=== PATIENT | male | born 1940 | race Caucasian/White ===

== ENCOUNTER 2025-05-05 12:55 | Inpatient (IN) | payer OTHER, SELFPAY ==
[2025-05-05] VITALS (41 sets, daily range): BP systolic 81–159; BP diastolic 55–82; PULSE 2–121; BMI 34.5
--- NOTE | 2025-05-05 11:13 | ED.GENMED ---
History of Present Illness
General
Chief Complaint: Chest Pain
Source: patient
Exam Limitations: none
Time Seen by Provider: 05/05/25 11:13
History of Present Illness
History of Present Illness:
See MDM
Past History
Past History
ED Past Medical History: CAD and HTN
ED Past Surgical History: Cardiac
Social History
Tobacco: Non-smoker
Personal:
Living: with family
Phy Exam
Physical Exam
Physical Exam:
See MDM
Scores
Heart Score for Chest Pain Patients
STEMI patient?: Yes
Course
Orders/Labs/Results
Orders:
Orders
05/05/25 11:06
Electrocardiogram (*1) Urgent
Reason for Study: Chest Pain
EKG- Treatment ONCE
05/05/25 11:12
Complete Blood Count/With Diff Urgent
Comprehensive Metabolic Panel Urgent
Troponin I Urgent
05/05/25 11:16
PTT Urgent
Prothrombin Time Urgent
Ticagrelor [Brilinta] 180 mg .ROUTE .STK-MED ONE
05/05/25 11:17
Heparin 5,000 units .ROUTE .STK-MED ONE
Vital Signs
Initial and Last Documented VS:
Initial Vital Signs
Pulse Resp Pulse Ox
108 35 93
05/05/25 11:09 05/05/25 11:09 05/05/25 11:09
Last Documented Vital Signs
Pulse Resp BP Pulse Ox
108 35 151/68 93
05/05/25 11:09 05/05/25 11:09 05/05/25 11:10 05/05/25 11:14
MDM/Problems Addressed
Differential Diagnosis Includes:
Note:
CHIEF COMPLAINT(S)
Chest pain.
HISTORY OF PRESENT ILLNESS
The patient is an 84-year-old male with a history of coronary artery bypass surgery performed in 2017. He presents with chest pain that he describes as having started a couple of days ago with intermittent episodes of chest discomfort between the
shoulders. Initially, the pain would subside with rest, but currently, it persists despite resting. The chest pain is also associated with shortness of breath, which worsens when lying flat. Of note, the patient self-administered 324 mg of aspirin
(four baby aspirins) prior to calling emergency medical services (EMS). He was pre-hospital alerted for potential ST-segment elevation myocardial infarction (STEMI) before his arrival at the emergency department.
Interventional cardiology at bedside on arrival
PAST MEDICAL AND SURGICAL HISTORY
History of coronary artery bypass graft surgery in 2017.
PHYSICAL EXAM
General: Alert, no acute distress.
Skin: Warm, dry.
Head: Normocephalic, atraumatic
Neck: Appears supple, trachea midline.
Eyes, Ears, Nose, Mouth, and Throat: Moist mucous membranes
Cardiovascular: No signs of cyanosis. Regular rate and rhythm
Respiratory: Respirations are non-labored.
Abdomen: Non-distended
Musculoskeletal: No deformities
Neurological: No focal neurological deficit observed.
Psychiatric: mildly anxious
PLAN
The patient will be prepared for cardiac catheterization to evaluate for potential arterial blockage as the underlying cause of symptoms. An IV line will be established, and the patient will be observed before being taken for the procedure. Consent
for cardiac catheterization has been obtained, acknowledging the small risks involved, including bleeding, heart attack, stroke, or need for emergency surgery.
DIFFERENTIAL DIAGNOSIS
The Differential Diagnosis includes, in no particular order and is not limited to:
- Acute coronary syndrome
- Myocardial infarction
- Aortic dissection
- Pulmonary embolism
- Gastroesophageal reflux disease
- Pericarditis
- Costochondritis
- Musculoskeletal pain
- Anxiety-related chest pain
- Heart failure
SUMMARY OF ENCOUNTER
The patient, presenting with chest pain and shortness of breath, was managed in the emergency department with a focus on ruling out acute coronary syndrome. An black topper was consulted early, and cardiac catheterization was planned to
assess for coronary artery disease.
DISPOSITION
Transfer to the catheterization lab for further evaluation and management.
EMERGENCY TREATMENTS ADMINISTERED
The patient received a bolus of heparin and ticagrelor (Brilinta) due to already having taken aspirin.
MEDICAL DECISION MAKING
- Number and Complexity of Problems Addressed: Chronic conditions affecting care include a history of coronary artery disease and prior coronary artery bypass graft surgery.
Data:
Category 1
- External record reviewed: Prior external cardiology reports indicating a history of coronary artery bypass grafting.
- Category 2
- Assessment requiring an independent historian(s): Input from EMS on patient�s aspirin use and initial chest pain management.
Discussion of management with other physician, healthcare provider, other source: The admitting black topper discussed patient management, particularly with the potential need for coronary intervention.
- Risk: The patient is at significant risk for cardiovascular complications, warranting immediate invasive cardiology assessment and potential intervention.
DIAGNOSIS
- Unstable angina (I20.0)
- Suspected acute myocardial infarction (I21.9)
Disposition:
SUMMARY OF ENCOUNTER
The patient, an 84-year-old male, presented to the emergency department with intermittent chest pain and shortness of breath. EMS was called prior to arrival due to concern for a potential ST-segment elevation myocardial infarction (STEMI), and a
pre-hospital STEMI alert was issued. The patient had self-administered aspirin before arrival. Upon arrival, interventional cardiology evaluated the patient, and he was promptly given ticagrelor (Brilinta) and heparin before being sent to the
catheterization lab for emergent cardiac catheterization to evaluate his coronary arteries.
DISPOSITION
Transfer to the catheterization lab for further evaluation and management.
EMERGENCY TREATMENTS ADMINISTERED
The patient received ticagrelor (Brilinta) and heparin.
MANAGEMENT OF THE PATIENTS CARE WAS DISCUSSED WITH
Interventional cardiology evaluated and managed the patients care upon arrival.
PLAN
The patient will undergo cardiac catheterization in the optical laboratory mechanic to assess for coronary artery disease and evaluate the cause of the symptoms.
MEDICATION RECONCILIATION
- Ticagrelor (Brilinta) administered.
- Heparin administered.
- Self-administered aspirin prior to arrival.
MEDICAL DECISION MAKING
- Number and Complexity of Problems Addressed: Chronic conditions affecting care include a history of coronary artery disease and prior coronary artery bypass graft surgery, with differential diagnoses including acute coronary syndrome and
myocardial infarction.
- Data:
Category 1
- External record reviewed: Interventional cardiology evaluated the patient on arrival.
Category 3
- Discussion of management with interventional cardiology regarding coronary intervention consideration.
DIAGNOSIS
- Unstable angina (I20.0)
- Suspected acute myocardial infarction (I21.9)
*Pulse Oximetry
SaO2: 93
Oxygen Mode of Delivery: Room air
Patient hypoxic: no
*Critical Care Note
Total Time (30-74mins, 75-104mins- exclusive of procedures): 25 min
comment:
The high probability of a clinically significant, sudden or life threatening deterioration of the cardiovascular system(s) required my full and direct attention, intervention and personal management. The aggregate critical care time was 25 minutes.
This time is in addition to time spent performing reported procedures but includes the following:
[x] Data Review and interpretation
[x] Patient assessment and monitoring of vital signs
[x] Documentation
[x] Medication orders and management
ED Attending Note
-
Portions of this chart may have been created with voice recognition software.� Occasional wrong word or��sound alike� substitutions may have occurred due to the inherent limitations of voice recognition software.
Discharge Plan
Departure
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
Date of Disposition: 05/05/25
Time of Disposition: 11:14
Admit to: photo lab manager
Presentation/result/management discussed w/ accepting MD/DO: strategic planner
Discharge Problem:
STEMI (ST elevation myocardial infarction)
Prescriptions:
No Action
aspirin [Adult Low Dose Aspirin] 81 MG tablet,delayed release (DR/EC)
81 mg DAILY
terazosin [Hytrin] 2 MG capsule
2 mg DAILY
captopril-hydrochlorothiazide 1 TAB tablet
1 tab PO BID
furosemide 40 MG tablet
40 mg PO DAILY Qty: 14 0RF
Rx Instructions:
take for 14 days then stop
atorvastatin 80 MG tablet
80 mg PO HS Qty: 90 0RF
metoprolol succinate 50 MG tablet extended release 24 hr
50 mg PO DAILY Qty: 90 0RF
potassium chloride [Klor-Con M20] 20 MEQ tablet,ER particles/crystals
20 meq PO DAILY Qty: 14 0RF
Rx Instructions:
take for 14 days then stop
pantoprazole 40 MG tablet,delayed release (DR/EC)
40 mg PO DAILY Qty: 30 0RF
Rx Instructions:
take for 30 days then stop
oxycodone 5 MG tablet
5 mg PO Q4HPRN PRN (Reason: MODERATE PAIN) Qty: 40 0RF
Rx Instructions:
ongoing therapy for postoperative pain
Interventions
Interventions:
*Risk Screen - Suicide Last Done: 05/05/25 11:07
*General Assessment Last Done: 05/05/25 11:07
*Neglect/Abuse Screening Last Done: 05/05/25 11:07
*ED COVID-19 Vaccine History Last Done: 05/05/25 11:07
*ED Influenza Vaccine History Last Done: 05/05/25 11:07
Discharge Date and Time
Print Language: MALAY
[2025-05-05 11:27] LABS: Hematocrit 46.6 % (39.0-52.0); Hemoglobin 16.1 g/dL (13.0-18.0); Mean Corp Hgb Conc. 34.5 g/dL (33.0-37.0); Mean Corpuscular Volume 92.5 fL (80.0-94.0); Nucleated Red Blood Cells % 0 % (-); Platelet Count 126 10^3/uL (130-400); Red Cell Dist. Width 14.2 % (11.5-14.5)
[2025-05-05 11:45] LABS: ACT-LR - POC 195 Seconds (116-155)
[2025-05-05 12:08] LABS: Hematocrit 43.8 % (39.0-52.0); Hemoglobin 15.0 g/dL (13.0-18.0); Mean Corp Hgb Conc. 34.2 g/dL (33.0-37.0); Mean Corpuscular Volume 93.0 fL (80.0-94.0); Nucleated Red Blood Cells % 0 % (-); Platelet Count 115 10^3/uL (130-400); Red Cell Dist. Width 14.2 % (11.5-14.5)
--- NOTE | 2025-05-05 12:18 | CON.CAR ---
Consultation
Consultation Request
Reason for Consultation: CAD/Chest pain
Medical History
-
Chief Complaint: CAD/Chest pain
History of Present Illness:
84 yo WM h/o Severe /CAD post CABGx2 (SALAMANCA-LAD, SVG-OM2) and bioprosthetic AVR 2017, HTN, HLD, COPD, BPH, former tobacco who presents with intermittent shoulder blade pain stating a few days ago with severe dyspnea and orthopnea which usually
subsides with rest, but his symptoms were not resolving and he called 911. Prehospital EKG with Anterior and inferior HEATHER and STEMI alert activated. He took 324mg ASA at home. He was brought urgently to the laborer rags after heparin, Brilinta given in
ER.
Past Medical History
Past Medical History: CAD, COPD, HTN, Hypercholesterolemia, Valvular Disease (Severe in bioprostetic valve), Psychiatric (Anxiety) and Other (BPH, preDM)
Past Surgical History: Cardiac (AVR, CABGx2 (SALAMANCA-LAD, SVG-OM2) 2017), Orthopedic (TKR) and Other (inguinal hernia repair)
Social History
Tobacco: Former Smoker
Alcohol: Occasional
Family History
Family History: Cancer
Allergies / Home Medications
Allergy/AdvReac Type Severity Reaction Status Date / Time
No Known Allergies Allergy Verified 01/31/17 02:40
�Medication �Instructions �Recorded �Confirmed �Type
aspirin 81 mg tablet,delayed 81 mg DAILY 01/31/17 01/31/17 History
release (Adult Low Dose Aspirin)
captopril 50 1 tab PO BID 01/31/17 01/31/17 History
mg-hydrochlorothiazide 25 mg tablet
terazosin 2 mg capsule (Hytrin) 2 mg DAILY 01/31/17 01/31/17 History
atorvastatin 80 mg tablet 80 mg PO HS #90 tabs 02/04/17 Rx
furosemide 40 mg tablet 40 mg PO DAILY #14 tabs 02/04/17 Rx
metoprolol succinate 50 mg 50 mg PO DAILY #90 tabs 02/04/17 Rx
tablet,extended release 24 hr
oxycodone 5 mg tablet 5 mg PO Q4HPRN PRN MODERATE PAIN 02/04/17 Rx
#40 tabs
pantoprazole 40 mg tablet,delayed 40 mg PO DAILY #30 tabs 02/04/17 Rx
release
potassium chloride 20 mEq 20 meq PO DAILY #14 tabs 02/04/17 Rx
tablet,extended
release(part/cryst) (Klor-Con M)
Review of Systems
-
Respiratory: Trouble Breathing
Cardiac: Chest Pain
Physical Exam
Vital Signs
Pulse Resp BP Pulse Ox
108 35 151/68 93
05/05/25 11:09 05/05/25 11:09 05/05/25 11:10 05/05/25 11:14
Lab Results
05/05/25 11:42
Troponin I Cancelled 05/05/25 11:12
Physical Exam
General: Respiratory Distress and Pain (full exam deferred as being prepped and draped for urgent cath)
Impression / Plan
-
Primary care physician: DENICE Prakash
Primary concrete products dispatcher: Troy Katz MD
Impression/Plan:
#Acute ischemic Myocardial injury - prior CABGx2/AVR 2016, severe stenosis of bioprosthetic AV and acute HF causing chest pain, dyspnea and diaphoresis. Cath with open grafts and no acute lesion for PCI
Severely elevated LVEDP 40, Lasix 40mg IV given in lab, will continue with aggressive diuresis, Lasix 40 IV bid, closely monitor I&O's, replete electrolytes as needed.
Check Echo today, 08/2024 ECHO - EF 60-65%, Severe p/m 54/39mmHg, JOANIE 1.0cm2, severe MAC
serial troponin to peak, continue ASA, Statin, BB
Will start heparin drip in 6 hours
#Acute hypoxic respiratory failure - currently on bipap to keep sats >92%, critically ill may require intubation if worsens
defer to circular sawyer stone for management
#Severe - prior Bioprosthetic AVR 2016, check Echo today to assess valve gradients, will have TAVR team discussion when more stable
#COPD/former tobacco - check cxr, resume home inhalers/nebs as needed
#HTN - continue nitro drip, resume PO meds when able
#Hyperlipidemia - check CVE, continue statin
#BPH
#Anxiety
Patient guarded, critically ill in ICU
Data Reviewed
-
EKG: Discussed with Physician
[2025-05-05 12:29] LABS: ALT (SGPT) 24 U/L (0-50); AST (SGOT) 77 U/L (17-59); Albumin 4.0 g/dl (3.5-5.0); Alkaline Phosphatase 81 U/L (38-126); Blood Urea Nitrogen 21 mg/dl (9-20); Calcium 9.7 mg/dl (8.4-10.2); Carbon Dioxide 22 mmol/L (22-30); Chloride 104 mmol/L (98-107); Estimated Creatinine Clearance 66 ml/min; Glucose 150 mg/dl (70-99); Potassium 3.8 mmol/L (3.5-5.1); Sodium 133 mmol/L (135-145); Total Protein 7.0 g/dl (6.3-8.2); eGFR > 60.00
--- NOTE | 2025-05-05 12:42 | HPS.HSE ---
Family Physician
-
Family Physician: INTERVIEWE UNKNOWN - PT NOT
Chief Complaint
-
Chest pain, shortness of breath
History of Present Illness
84-year-old male who started with chest pain intermittent a couple days ago between both shoulder blades. He reports pain would subside with rest but currently is persistent and associated with shortness of breath. He complains of constant
orthopnea. He took aspirin 324 mg before calling EMS. He arrived as a STEMI with interventional cardiology at bedside. Patiently is currently in ICU resting comfortably with BiPAP in place. He denies current chest pain, headache, palpitations,
fever, chills, cough, abdominal pain, nausea, vomiting, diarrhea. He was able to void in urinal at bedside. The patient lives by his self his son is his emergency contact however is [place] of the [place] however his brother Jake is here with him.
He has past medical history of CAD/CABG 2017, HTN, COPD, ex-smoker 30 to 40 years quit 10 years ago, AVR with severe , HLD, GERD, arthritis.
Medical History
Past Medical History
Past Medical History: Reports Other
Additional Past Medical History:
CAD/CABG 2017
HTN,
ex-smoker
COPD
AVR with severe
HLD
GERD
arthritis
Class II obesity
Past Surgical History: Reports Other
Additional Past Surgical History:
Anal fissure repair in 2009, right knee replacement
Social History
Tobacco: Former Smoker (30 to 40 years 1 pack a day quit approximately 10 years ago)
Alcohol: Occasional (1-2 beers a week occasional bourbon)
Drug: None
Personal: Single
Living: Alone
Employment: Retired
Family History
Family History: Not pertinent
Allergies / Home Medications
Allergies reflects when Allergies were last updated in [employer].
Home Medications with original date entered in [employer]
Allergy/Medication List:
Allergies
Allergy/AdvReac Type Severity Reaction Status Date / Time
No Known Allergies Allergy Verified 01/31/17 02:40
Home Medications
aspirin 81 mg tablet,delayed release (Adult Low Dose Aspirin) 81 mg DAILY 01/31/17
atorvastatin 80 mg tablet 80 mg PO HS #90 tabs 02/04/17
enalapril maleate 5 mg tablet 5 mg PO BID Blood Pressure 05/05/25
fluticasone fur. 100 mcg-umeclid 62.5 mcg-vilant 25 mcg inhalat.powder (Trelegy Ellipta) 1 inh inhalation DAILY Lung/Breathing Issues 05/05/25
hydrochlorothiazide 25 mg tablet 25 mg PO DAILY Fluid Retention/Swelling 05/05/25
metoprolol succinate 100 mg tablet,extended release 24 hr 100 mg PO DAILY Blood Pressure 05/05/25
terazosin 2 mg capsule 2 mg PO DAILY Blood Pressure 05/05/25
Review of Systems
-
History Source: Patient
Constitutional: Denies Fever, Fatigue or Chills
EENT: Denies Sore Throat or Runny Nose
Respiratory: Reports Trouble Breathing and Other (Orthopnea)
Cardiac: Reports Chest Pain; Denies Diaphoresis, Palpitations or Syncope
Abdomen/GI: Denies Abdominal Pain, Nausea, Vomiting, Diarrhea, Constipated, Bloody Stools or Black Stools
: Denies Dysuria, Frequency, Flank Pain, Incontinence or Difficulty Voiding
Musculoskeletal: Reports Edema (Nonpitting +1 bilateral lower leg); Denies Joint Pain
Skin: Denies Itching or Rash
Neurological: Denies Dizzy, Headache or Weakness
Endocrine: Reports No Symptoms
Hematologic/Lymphatic: Reports No Symptoms
Psych: Reports Calm
Physical Exam
Vital Signs
Vital Signs
Pulse Resp BP Pulse Ox
108 35 151/68 93
05/05/25 11:09 05/05/25 11:09 05/05/25 11:10 05/05/25 11:14
Physical Exam
General: Comfortable and Conversant
HEENT: NormoCephalic, Anicteric, PERRLA, Maish Vaya Conjunctivae, No Ptosis and Oxygen (Current BiPAP in place satting 91-94% 15/5 on 12 L nasal cannula)
Respiratory: Rhonchi (Throughout both upper lung modi)
Cardiac: S1/S2, Regular Rhythm, Murmur (3/6 systolic) and Peripheral Edema (+1 nonpitting bilateral lower leg); No Rub or Gallop
GI: Soft, Non Tender, Non Distended, Normal Bowel Sounds and No Hepatosplenomegaly
Genito-urinary: Deferred by me
Musculoskeletal: No Clubbing, No Cyanosis, Edema, Left Lower Extremity (+1) and Edema, Right Lower Extremity (+1 nonpitting); No Edema, Left Upper Extremity or Edema, Right Upper Extremity
Skin: Warm and Dry; No Rash
Neuro: AO x 3, No Motor Deficits, Nonfocal/grossly intact, Cranial Nerves Intact and No Sensory Deficits; No Slurred Speech, Facial Droop, Tremors or Sedated
Psych: Calm
Laboratory Results
-
05/05/25 11:42
05/05/25 11:42
Laboratory Results
PT Cancelled 05/05/25 11:16
INR Cancelled 05/05/25 11:16
APTT Cancelled 05/05/25 11:16
Total Bilirubin 2.2 mg/dl (0.2-1.3) H 05/05/25 11:42
AST 77 U/L (17-59) H 05/05/25 11:42
ALT 24 U/L (0-50) 05/05/25 11:42
Alkaline Phosphatase 81 U/L (38-126) 05/05/25 11:42
Troponin I Cancelled 05/05/25 11:12
Data Reviewed
-
Diagnostic Radiology: Report Reviewed by me
Lab Data: Labs Reviewed by me
Impression/Plan
-
Impression/plan:
Admit to ICU
#Suspected STEMI prehospital
#CAD/CABG 2016
Prehospital aspirin 325 mg given by patient at home
-Brilinta given in ER
-IV heparin to start 6 pm To be clarified with Dr dalton
- Patient to cardiac cath
-Consult human resources hr representative�Dr. Dietrich at bedside
-Consult cardiology interventionalist
- Continue aspirin 81 mg daily, Lipitor 80 mg at bedtime, Toprol XL 50 mg daily
- Check lipid profile, HgbA1c, follow troponin CBC
-Check stat CXR
Follow CBC, CMP
Post cath No stent grafts or open, EDP 40, severe AAS with acute heart failure no culprit lesion more ischemia in setting of severe and heart failure
#Acute Hypoxic resp failure 2/2 NEW Acute heart failure requiring Bipap
# AVR with severe
Patient requiring BiPAP 15/5 with 12 L O2 satting 91-94%
-IV Lasix 40 mg twice daily
-IV nitro drip
-Check 2D echo
-Consult CArdioogy
#HTN
151/68
-Continue beta-naren metoprolol 100 mg BId
Continue enalapril 5 mg twice daily with hold parameters
COPD no acute exacerbation
Ex-smoker 30 to 40 years quit 10 years ago
#GERD
Continue Protonix 40 mg daily
#BPH
Continue terazosin 2 mg daily
#Class II obesity�BMI 34
Weight loss recommended
DVT prophylaxis
Iv heparin gtt
Full code
--- NOTE | 2025-05-05 12:48 | ITS.CL.PN ---
[facility] - Procedure Note
Procedure
Procedure Note:
CARDIAC CATHETERIZATION REPORT
Date of Procedure: 05/05/2025
Referring: Davian Bo MD
Indication: STEMI
PROCEDURE(S)
1. left heart catheterization
2. coronary angiography
ACCESS: 6F right common femoral artery (closure: Angiosealx1)
CATHETERS
1. 6F JR4
2. 6F JL4
3. 6F IVAN
4. 6F AL1
5. 6F [place] pigtail
MODERATE SEDATION: 45 minutes of moderate sedation was utilized. An independent medical lab technologist was present to assist with and help manage the patient's level of consciousness and physiologic status.
HEMODYNAMIC DATA
LV 178/28 (EDP 47) mmHg
AO 149/79 (mean 108) mmHg
Mean valve gradient (via [place] dual lumen catheter): 28 mmHg (note: RHC not performed as patient was in acute hypoxic respiratory failure and priority was placed on getting the patient off the cath table)
CORONARY ANGIOGRAPHY
Dominance: right
LM: large with mild disease
LAD: large vessel giving rise to a moderate caliber D1 and moderate caliber D2. There is a high grade heavily calcified lesion in the proximal LAD before the D1 takeoff and then a ROPEWALK ROPE MAKER in the mid-LAD just after the large S1. The S1 supplies septal
collaterals to the RCA and has a focal severe stenosis in its proximal aspect. The mid-distal vessel is fed via the patent SALAMANCA. While the SALAMANCA and its touchdown on the LAD are without disease, the remainder of the LAD is highly atretic with diffuse
severe disease in both the antegrade and retrograde limb but no obvious culprit lesion.
LCx: Large vessel giving rise to a totally occluded OM1 fed via the SVG and a large caliber continuation vessel that feeds several LPL branches. There is a focal 80% stenosis at the takeoff of OM1 and otherwise mild diffuse disease.
RCA: Chronically occluded proximally with the vessel filled via L-R collaterals from the LAD septals.
BYPASS GRAFT ANGIOGRAPHY:
SALAMANCA-LAD: the SALAMANCA is taken as a pedicle and forms an anastomosis with the mid-LAD. The SALAMANCA is a highly tortuous vessel without any disease in the body and no disease at the touchdown.
SVG-OM1: without disease, form a patent anastomosis with the OM1
RADIATION: dose 626 mGy; DAP 52 Gy*cm2; fluoroscopy time 11.0 min
CONCLUSIONS
1. Severely elevated LV filling pressure and at least moderate bioprosthetic aortic valve stenosis (mean gradient 28 mmHg, but patient likely in low output state give severe heart failure). RHC not performed for full valve study given the patient's
poor clinical status due to severe pulmonary edema from heart failure.
2. Severe coronary artery disease s/p CABGx2 as described without clear infarct lesion to explain presentation. I believe his presentation is most consistent with progressive heart failure and severe with underlying severe coronary artery disease.
RECOMMENDATIONS
1. Diuresis and treatment of acute heart failure and pulmonary edema with IV lasix and nitro titrated to goal SBP<160 (note: care taken with nitro given severe aortic stenosis)
2. TTE once out of acute heart failure to evaluate valve gradients with consideration of inpatient vs. outpatient workup for Josue TAVR pending course. Of note, TTE performed today measured a mean aortic valve gradient of 2 mmHg, likely due to the CW
doppler not being appropriately positioned across the valve.
3. Restart heparin tonight for 48 hours
4. Cont. home ASA, atorvastatin, metoprolol
Copy to: Dr. Troy Katz MD (senior formulation scientist); DENICE Prakash (PCP)
Signed: Luis Witt MD, PhD
--- NOTE | 2025-05-05 12:49 | CON.INTV ---
Consultation
Consultation Request
Date/Time Consultation Requested: 05/05/2025
Date/Time Consultation Performed: 05/05/2025
Medical History
-
Chief Complaint: Chest pain
History of Present Illness:
Patient is a 84-year-old gentleman with known history of coronary artery bypass graft as well as aortic stenosis status postsurgical valve replacement in 2017 who presented to the emergency room with chest discomfort intermittently going on for few
days and mostly between the shoulder blades. Pain improves with rest and associated with dyspnea. Patient received a dose of aspirin and was brought to the emergency room with a STEMI alert. Patient was taken to Associate Programmer Analyst and had a coronary
angiogram performed. In the Associate Programmer Analyst, no culprit lesions were noted, patent grafts, however elevated LV diastolic pressure to 40 along with severe aortic stenosis as well as decompensated heart failure felt to be the etiology of symptoms. Patient
was placed on BiPAP due to respiratory distress and was admitted to ICU. Junior Software Developer consultation was requested for further input.
Patient has been noticing pedal edema over the last few days. Also reported paroxysmal nocturnal dyspnea as well as orthopnea. Reports feeling better while on BiPAP.
Past Medical History
Past Medical History: Reports Other
Additional Past Medical History:
CAD/CABG 2016
HTN,
ex-smoker,
AVR with severe
HLD
GERD
arthritis
Past Surgical History: Reports Other
Additional Past Surgical History:
. Anal fissure repair in 2009, right knee replacement
Allergies / Home Medications
Allergies / Home Medications
Allergies
Allergy/AdvReac Type Severity Reaction Status Date / Time
No Known Allergies Allergy Verified 01/31/17 02:40
Home Medications
�Medication �Instructions �Recorded �Confirmed �Last Taken �Type
aspirin 81 mg tablet,delayed 81 mg DAILY 01/31/17 01/31/17 01/30/17 06:00 History
release (Adult Low Dose Aspirin)
atorvastatin 80 mg tablet 80 mg PO HS #90 tabs 02/04/17 05/05/25 Unknown Rx
enalapril maleate 5 mg tablet 5 mg PO BID Blood Pressure 05/05/25 05/05/25 Unknown History
fluticasone fur. 100 mcg-umeclid 1 inh inhalation DAILY 05/05/25 05/05/25 Unknown History
62.5 mcg-vilant 25 mcg Lung/Breathing Issues
inhalat.powder (Trelegy Ellipta)
hydrochlorothiazide 25 mg tablet 25 mg PO DAILY Fluid 05/05/25 05/05/25 Unknown History
Retention/Swelling
metoprolol succinate 100 mg 100 mg PO DAILY Blood Pressure 05/05/25 05/05/25 Unknown History
tablet,extended release 24 hr
terazosin 2 mg capsule 2 mg PO DAILY Blood Pressure 05/05/25 05/05/25 Unknown History
Review of Systems
-
Hematologic/Lymphatic: Other (All 14 systems reviewed and negative except as stated above in the history of present illness.)
Vitals / Labs / Diagnostic Testing
Vital Signs
Pulse Resp BP Pulse Ox
108 35 151/68 93
05/05/25 11:09 05/05/25 11:09 05/05/25 11:10 05/05/25 11:14
Lab Data
05/05/25 11:42
05/05/25 11:42
Laboratory Results
05/05/25
11:16
PT Cancelled
INR Cancelled
APTT Cancelled
Diagnostic Testing:
Physical Exam
-
HEENT: Normocephalic
Cardiovascular: S1/S2 and Peripheral Edema
Respiratory: Rales
GI: Soft and Non Distended
Neurology: Awake and Alert
Skin: Warm
General: Comfortable
Assessment
-
#1. Acute hypoxic respiratory failure
- Suspect related to decompensated heart failure in the setting of severe aortic stenosis
- Continue O2 support, target saturation above 90%, continue BiPAP support. Currently on 28/10, pulling 400's tidal volume
- IV diuresis, give additional 40 mg IV stat
- Await follow-up echocardiogram, cardiology service on case
#2. Pulmonary edema with acute on suspect chronic congestive heart failure
- EF is unknown, await echocardiogram
- Suspect critical aortic stenosis is the driving factor behind decompensated heart failure
- BIPAP support, IV Lasix.
#3. Concern for ST elevation IL
- ST elevation in lateral leads as well as elevated troponin noted. Patient on aspirin, heparin drip, was emergently taken to Associate Programmer Analyst. Angiogram without major vessel blockage, ?small vessel disease
- Management per cardiology service, continue ASA/heparin infusion.
#4. H/o CAD, s/p CABG (01/2017)
- Continue ASA, Metoprolol, Heparin infusion
#5. 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
- Appears to be recurrence of severe aortic stenosis
- Monitor closely with ongoing diuresis, await further recommendations from cardiology service
#6. H/o COPD
- Patient quit smoking about 8 years ago
- Uses Trelegy at home, will switch to DuoNeb scheduled 4 times daily along with budesonide twice daily
- No wheezing on exam, current presentation not suggestive of COPD exacerbation
Other medical diagnoses:
- HTN
- HLD
- BPH
Critical Care time 65 mins -- The patient is admitted for acute critical illness for the treatment of vital organ failure and/or prevention of further life-threatening conditions. Total care includes time spent in review of history, physical exam,
medications, hemodynamic/ventilator parameters, laboratory data, imaging and discussion with house staff, pharmacy, respiratory therapy, heel buffer, and nursing.
Data:
EKG 04/2025: ST elevation in lateral leads.
ECHO 08/2024: 1. Normal chamber sizes.
2. Moderate to severe aortic stenosis
3. Normal left and right ventricular systolic function.
4. Grade 1 diastolic dysfunction
5. Normal right ventricular systolic pressure.
PFT 03/2023: FEV1 75% of predicted, FVC 63% of predicted, FEV1/FVC of 83. Total lung capacity reduced at 54% of predicted. Diffusion capacity reduced at 13.79, 59% of predicted. Spirometry without evidence of obstruction. Moderate restriction
suggested by reduced FVC as well as reduced total lung capacity along with reduced diffusion capacity.
[2025-05-05 12:51] LABS: Troponin I 4.000 ng/ml
--- NOTE | 2025-05-05 13:00 | PTCARENOTE ---
Pt was rec'd from coreroom foundry laborer into ICU 3367, bipap in place, nitro gtt running for MAP 70-100, orders reviewed, pt assessed, plan discussed with Dr. Dietrich. Stat CXR ordered and done, Echo ordered, 40 IV Lasix ordered and given. Pt unable to void via
urinal despite feeling urge, male purewick applied. See worklist.
[2025-05-05 13:20] LABS: Glucose - Point of Care 182 mg/dl (70-99)
--- NOTE | 2025-05-05 13:35 | W.PN.UPDATE ---
Addendum entered and electronically signed by Marli Vazquez MD 05/05/25 14:18:
patient bladder scanned for 800cc --> place aponte catheter
Original Note:
Update Note
Progress Note Update
This is an addendum to H&P written by CHECKER IN Kassy Salguero
I saw and examined the patient.
The CHECKER IN's note was reviewed and I agree with the note.
Comment:
Mr. Stefan Guthrie is a 84 yo man with hx severe s/p bioprosthetic AVR 2016 with elevated gradiants on echo 09/07 (54/39), CAD s/p CABG x 2, essential HTN, HLD, COPD, former tobacco use presents to the ER with pain between his shoulder blades
over past couple of days and worsening shortness of breath. Upon arrival to the ER VS significant for pulse 103, BP 151/68. Labs with WBC 10, Hg 15, PLT 115, Na 133, K+ 3.8, Cr 1.0, Glucose 150, T. Bili 2.2, Troponin 4. EKG with STEMI and he was
taken urgently to cardiac cath.
Cardiac cath without culprit lesion, open grafts. Elevated LVEDP at 40. He is requiring BiPAP for acute respiratory failure secondary to acute heart failure exacerbation in setting of .
Hypoxic Respiratory Failure seondary to heart failure
Acute heart failure preserved EF Exacerbation
Known moderate to severe Aortic Stenosis; Hx severe s/p bioprosthetic AVR 2016
Coronary Artery Disease s/p CABG x 2
-patient is admitted to ICU
-IV Lasix 40mg BID
-O2 support with BiPAP - wean as able with diuresis
-daily aspirin
-SCHEDULING ASSISTANT Lipitor
-SCHEDULING ASSISTANT Metoprolol XL 100mg
-IV Nitro gtt
-IV heparin gtt to start at 6PM per Cardiology
-trend Troponins
-Overhead Door Technician consult
-Cardiology consult
-daily weights, strict I/O
-*bladder scan to ensure not retaining
Essential HTN
-SCHEDULING ASSISTANT Metoprolol, Enalapril
-hold SCHEDULING ASSISTANT HCTZ
-SCHEDULING ASSISTANT Terazosin
HLD - SCHEDULING ASSISTANT Statin
COPD
DVT PPx Heparin gtt
FULL CODE
Total Critical Care TimE 60 minutes. I was immediately available to the patient and staff. I personally examined, reviewed labs, diagnostic images/reports, interpretations, treatment plans, discussed patient care with other providers and family
or caregivers (if patient is unable to make decisions), entered orders as appropriate and documented the medical record.
[2025-05-05] MEDS: LASIX 40 MG IV ×2 (13:52→16:06)
--- NOTE | 2025-05-05 14:05 | CARDSERVLU ---
Echocardiogram with Lumason completed after protocol screening completed. Allergies verified.
Patent IV site: __L hand___
IV site flushed with 0.9% NaCl pre and post administration.
Diluted bolus method utilized to enhance visualization of ventricular neal.
Total volume given: __2.5__ mL
Patient tolerated all procedures well without complications.
--- NOTE | 2025-05-05 14:21 | PTCARENOTE ---
Pt nauseated during Echo, felt like he was going to vomit, Bipap mask removed and nasal cannula placed. Pt retching, very small amount of emesis. Pt voiding small amount of clear yellow urine into male purewick, feeling urge to pass more urine but
canonot empty completely... per Dr. Vazquez, pt bladder scanned, result 806 mls, orders for aponte cath rec'd. Pt now feeling less nauseated, Zofran held at this time.
--- NOTE | 2025-05-05 15:22 | PTCARENOTE ---
14 fr. aponte placed with immediate return of 1100 mls clear yellow urine. Pt reports relief from pressure in bladder. Pt's family arrived to see him and were updated at bedside by Dr. Witt. Pt vital signs improving, BP WNL on nitro gtt as
ordered, will taper per protocol as appropriate. Call light in reach, pt resting comfortably.
[2025-05-05] MEDS: DUONEB 3 ML INH ×2 (15:28→18:47)
[2025-05-05 15:32] LABS: Magnesium 1.9 mg/dl (1.6-2.3)
[2025-05-05] MEDS: DESENEX/MITRAZOL/ZEASORB 1 APPLIC TOPICAL (17:14)
[2025-05-05] MEDS: KCL 40 MEQ PO (18:13)
[2025-05-05] MEDS: HEPARIN 25000 UNITS/250 ML IV (18:18)
[2025-05-05 18:22] LABS: Troponin I 74.200 ng/ml
--- NOTE | 2025-05-05 18:32 | PTCARENOTE ---
Plan was clarified with Dr. Witt, pt very uncomfortable in the bed, legs cramping, anxious... per Dr. Witt ok to come off bedrest 6 hours post cath. Right groin assessed prior to getting oob, small amount of bloody drainage on
dresssing...marked and timed by RN. Pt assisted to chair. Pt reports feeling better in chair. Sat 97% on 5L, will cont to wean as tolerated. Labs drawn and sent as ordered, Heparin gtt initiate at 18:18 at 1000 units/hr as ordered.
[2025-05-05 18:38] LABS: INR 1.06; PT 14.3 Sec (11.4-14.6)
[2025-05-05 18:39] LABS: APTT 28.0 Sec (23.4-35.0)
[2025-05-05] MEDS: PULMICORT 0.5 MG INH (18:47)
--- NOTE | 2025-05-05 20:50 | PTCARENOTE ---
received pt from [facility], bedside heparin gtt handoff. Patient OOB to chair watching TV, offering no c/o pain or discomfort at this time. Patient assisted to [facility] where he had BM, however patient asked for senna to start tomorrow morning as he has
history of frequent constipation, new orders profiled from WOOLING MACHINE OPERATOR.
Patient assisted back to bed, Heparin gtt running with no issue at 10, no s/s of bleeding to angio site.
O2 97% on 5 lm. pt has c/o feeling SOB with rest, instructed to take slow deep breaths with nose not mouth.
no further needs, call light within reach.
[2025-05-05] MEDS: VALIUM INJECTION 5 MG IV (21:50)
[2025-05-05] MEDS: LIPITOR 80 MG PO (21:50)
--- NOTE | 2025-05-05 22:28 | PTCARENOTE ---
patient expressing fear and anxiety regarding his procedure and the upcoming procedures, PRN valium ordered by TICKET WORKER, given to patient = effective results, patient sleeping
[2025-05-06] VITALS (17 sets, daily range): BP systolic 108–154; BP diastolic 49–86; BMI 34.3
[2025-05-06 00:07] LABS: APTT 61.7 Sec (23.4-35.0)
[2025-05-06 01:08] LABS: Troponin I 98.800 ng/ml
[2025-05-06] MEDS: TYLENOL 650 MG PO (05:25)
--- NOTE | 2025-05-06 05:43 | PTCARENOTE ---
patient OOB for part of shift, states feeling sob and having a hard time breathing, upon assessment, patient had nasal canula out of his nose. after a few minutes back on patient states he feels more comfortable.
prn tylenol given for mild chest discomfort.
labs drawn and sent
[2025-05-06 06:03] LABS: Hematocrit 46.7 % (39.0-52.0); Hemoglobin 16.2 g/dL (13.0-18.0); Mean Corp Hgb Conc. 34.7 g/dL (33.0-37.0); Mean Corpuscular Volume 93.2 fL (80.0-94.0); Platelet Count 126 10^3/uL (130-400); Red Cell Dist. Width 14.3 % (11.5-14.5)
[2025-05-06 06:36] LABS: Troponin I 78.400 ng/ml
[2025-05-06 07:12] LABS: ALT (SGPT) 57 U/L (0-50); AST (SGOT) 472 U/L (17-59); Albumin 4.4 g/dl (3.5-5.0); Alkaline Phosphatase 71 U/L (38-126); Blood Urea Nitrogen 26 mg/dl (9-20); Calcium 9.6 mg/dl (8.4-10.2); Carbon Dioxide 28 mmol/L (22-30); Chloride 102 mmol/L (98-107); Estimated Creatinine Clearance 55 ml/min; Glucose 161 mg/dl (70-99); HDL Cholesterol 71 mg/dl; LDL Cholesterol, Calculated 58 mg/dl; Potassium 3.9 mmol/L (3.5-5.1); Sodium 138 mmol/L (135-145); Total Protein 7.2 g/dl (6.3-8.2); Very Low Density Lipoprotein 15 mg/dl (0-30); eGFR 59.63
[2025-05-06] MEDS: DUONEB 3 ML INH ×4 (07:54→18:04)
[2025-05-06] MEDS: PULMICORT 0.5 MG INH ×2 (07:54→18:04)
[2025-05-06 08:26] LABS: Glycohemoglobin (HgbA1c) 5.7 % (4.0-5.9)
[2025-05-06 08:31] LABS: APTT 73.5 Sec (23.4-35.0)
[2025-05-06] MEDS: ASPIR LOW (ENTERIC COATED) 81 MG PO (08:59)
[2025-05-06] MEDS: TOPROL XL 50 MG PO (08:59)
[2025-05-06] MEDS: LASIX 40 MG IV ×2 (08:59→17:24)
[2025-05-06] MEDS: DESENEX/MITRAZOL/ZEASORB 1 APPLIC TOPICAL (09:02)
[2025-05-06] MEDS: KCL 40 MEQ PO (10:35)
[2025-05-06] MEDS: SENOKOT PO (10:36)
[2025-05-06 10:41] LABS: Magnesium 1.8 mg/dl (1.6-2.3)
--- NOTE | 2025-05-06 10:49 | W.PN.CD ---
Today's Communication / Plan
-
cont. diruesis
metop inc. to 50 BID
start valsartan
TAVR CT pending rhythm stability
ok for IVU
Impression / Plan
-
Primary care physician: DENICE Prakash
Primary clinical research spec: Troy Katz MD
84 year old with history of AVR/CABGx2 (2017, SALAMANCA-LAD, SVG-OM, unable to graft PDA), presenting with several days of worsening shortness of breath and orthopnea and shoulder pain, found to have anterior/inferior HEATHER on EKG. Cath 05/05 with
profoundly elevated LV filling pressure, at least moderate-severe bio , and no clear culprit lesion (patnet SALAMANCA but poor outflow in a diffusely diseased, atretic LAD, patent SVG-OM). TTE with severely decresaed EF ~30%, but strangely did not
demonstrate any with gradient of 2 mmHg (likely CW missing the valve).
Overnight improved dramatically with diuresis and BiPAP (now weaned to 2L NC O2). Trop peaked ~90. Tele now with very frequent PVCs. Continues to have constant low grade shoulder pain, minimal shortness of breath.
#Myocardial injury without infarction in setting of acute hypoxic respiratory failure and heart failure
#Hypoxic respiratory failure
#Severe
#Severe acute systolic heart failure with severely reduced ejection fraction
- presentation seems most consistent with severe acute systolic heart failure in setting of likely severe bio and severe underlying CAD, rather than Type I [place]
- cont. ASA/statin
- 48 hours heparin
- cont. IV diuresis BID for today
- increase BB to tartrate 25 BID
- initiate GDMT, starting with valsartan
- recheck echo today: 08/2024 ECHO - EF 60-65%, Severe p/m 54/39mmHg, JOANIE 1.0cm2, severe MAC; valve gradient in lab 05/05 (like in setting of low flow) was 28 mmHg
- TAVR CT pending lower heart rate and less ectopy, pending course and anatomy will consider inpatient vs. outpatient valve replacement
#COPD/former tobacco - check cxr, resume home inhalers/nebs as needed
#HTN - GDMT as above
#Hyperlipidemia - continue statin, eventual PCSK9i for goal LDL<40
#BPH
#Anxiety
Patient improving, will downgrade to IVU today
Physical Exam
Vital Signs/Labs
Vital Signs
Temp Pulse Resp BP Pulse Ox
36.6 C 108 21 111/81 95
05/06/25 07:07 05/06/25 08:59 05/06/25 08:00 05/06/25 08:59 05/06/25 08:00
05/05/25 05/06/25 05/07/25
06:59 06:59 06:59
Actual Weight 105.2 kg
05/06/25 05:32
05/06/25 05:32
PT 14.3 Sec (11.4-14.6) 05/05/25 18:20
INR 1.06 05/05/25 18:20
APTT 73.5 Sec (23.4-35.0) H 05/06/25 08:11
Magnesium 1.8 mg/dl (1.6-2.3) 05/06/25 05:32
Triglycerides 77 mg/dl (10-149) 05/06/25 05:32
LDL Cholesterol, Calc 58 mg/dl 05/06/25 05:32
VLDL Cholesterol, Calc 15 mg/dl (0-30) 05/06/25 05:32
HDL Cholesterol 71 mg/dl 05/06/25 05:32
LAB Results
05/05/25 05/05/25 05/05/25
11:12 11:42 17:35
Troponin I Cancelled 4.000 H* 74.200 H* D
05/05/25 05/06/25 05/06/25
23:44 00:00 05:32
Troponin I 98.800 H* D Cancelled 78.400 H*
Physical Exam
Constitutional: Comfortable
Cardiovascular: Rhythm/rate is irregular (frequent PVCs)
Respiratory: Respiratory effort normal
Neuro/Psych: AO x 3
Data Reviewed
-
Date of Service: May 06, 2025
Medical Decision Making: Reviewed Test Results
EKG: Tracing Personally Visualized and interpreted
Echo: Tracing Personally Visualized and interpreted
Labs: Labs Reviewed by me
--- NOTE | 2025-05-06 10:50 | W.PN.HOSP.TC ---
Today's Communication/Plan
-
Continue with heparin drip
Continue with nitro can be weaned off
Continue with aggressive diuresis
Monitor creatinine
Goal-directed medical therapy
Wean O2 as tolerated
can transfer out of ICU
Assessment / Plan
Assessment / Plan
General: Comfortable and Conversant
HEENT: normocephalic, Anicteric, [place] Conjunctivae, No Ptosis
Respiratory: Rhonchi, oxygen 2L
Cardiac: S1/S2, Regular Rhythm, Murmur (3/6 systolic) and Peripheral Edema (+1 nonpitting bilateral lower leg);
GI: Soft, Non Tender, Non Distended, Normal Bowel Sounds and No Hepatosplenomegaly
Genito-urinary: Hatch with clear yellow urine
Musculoskeletal: LE edema
Skin: Warm and Dry; No Rash
Neuro: AO x 3, No Motor Deficits, Nonfocal/grossly intact, Cranial Nerves Intact and No Sensory Deficits; No Slurred Speech, Facial Droop, Tremors or Sedated
Psych: Calm
#Acute hypoxic respiratory failure likely secondary to acute HFrEF in the setting of severe aortic stenosis
#AVR with severe
Patient requiring BiPAP 15/5 with 12 L O2 on admission and now down trended to 2 L
- IV Lasix 40 mg twice daily
- IV nitro drip
- Trend creatinine. Mild bump noted.
- Seems to be having good urine output
- ECHO-normal left ventricular size and moderate to severe reduced systolic function. EF of 30%. Hyperdynamic base with hypo-/akinesis of the remaining neal. Possible stress-induced cardiomyopathy. Normal biventricular size and function.
- Cont asa/statin/toprol. Can eventually start Entresto/aldactone if BP can tolerate. Consider SGLT2
#CAD/CABG x 2
# Elevated troponin likely type II CT in the setting of severe heart failure exacerbation
-s/p cardiac catheterization without clear infarct.
-Continue with aspirin, high-dose statin
-Plan to continue heparin drip for 48 hours.
#Transaminitis suspected due to severe heart failure exacerbation
Continue to trend AST ALT
#Leukocytosis
-likely reactive
-trend for now
#HTN
-Monitor BP closely with diuretics
#COPD no acute exacerbation
Ex-smoker 30 to 40 years quit 10 years ago
Bronchodilators per pulm
#GERD
Continue Protonix 40 mg daily
#BPH with urinary retention
-Hatch catheter for now.
-eventaully voiding trial
#Class II obesity�BMI 34
Weight loss recommended
DVT prophylaxis -Iv heparin gtt
Full code
Anticipated Discharge: > 48 hours
Subjective/Interval History
-
Date of Service: May 06, 2025
states improvement in breathing
remains with mild substernal chest pain/discomfort
Objective Data
-
Labs:
Laboratory Results
05/05/25 05/06/25 05/06/25
23:44 05:32 08:11
WBC 14.3 H
Hgb 16.2
Hct 46.7
Plt Count 126 L
APTT 61.7 H 73.5 H
Sodium 138
Potassium 3.9
Chloride 102
Carbon Dioxide 28
BUN 26 H
Creatinine 1.2
Glucose 161 H
Calcium 9.6
Total Bilirubin 4.5 H D
AST 472 H
ALT 57 H
Alkaline Phosphatase 71
05/06/25
14:30
WBC
Hgb
Hct
Plt Count
APTT Pending
Sodium
Potassium
Chloride
Carbon Dioxide
BUN
Creatinine
Glucose
Calcium
Total Bilirubin
AST
ALT
Alkaline Phosphatase
Vital Signs:
Vital Signs
Temp Pulse Resp BP Pulse Ox
98 F 108 21 111/81 95
05/06/25 07:07 05/06/25 08:59 05/06/25 08:00 05/06/25 08:59 05/06/25 08:00
I&O
05/05/25 05/06/25 05/07/25
06:59 06:59 06:59
Intake Total 264.4 / 275.4
Output Total 2835 / 2885 125 / 125
Balance -2570.6 / -2609.6 -103 / -103
Data Reviewed
-
Total Time Spent with Patient (in minutes): 58
--- NOTE | 2025-05-06 10:58 | PTCARENOTE ---
Pt rec'd this am from night RN, walking rounds completed, hep gtt handoff validation completed. Pt remains AOx3, anxious at times, pleasant and cooperative with all care. Site check of right groin completed, drainage to dressing unchanged. Aponte in
place for acute retention, draining allyson urine, see worklist for hourly output. Telemetry showing sinus rhythm with mult PVCs, BBC, BP stable. +faint murmer auscultated. Oxygen weaned to 2L at this time, pt tolerating well. Pt continues to endorse
mild chest pain rating it approx 2/10 as well as upper back/shoulder pain which is the same as prior, he reports some relief from PRN Tylenol. See MAR for admin details. Pt oob to chair at 0900, aponte care, oral care, and CHG bath provided. Plan
discussed with care team -Samir Donohue and Kaur. Orders rec'd and carried out, pt stable for downgrade to IVU. Call light in hand, pt watching TV, resting comfortably.
--- NOTE | 2025-05-06 11:19 | CM ---
Initial assessment completed with patient who lives alone in a 2 story town home with no basement, B/B on 2nd, 1/2 bath on 1st, 2 steps to enter. 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 Does have a HC POA. No VA benefits. No
psychiatric hospitalizations. Has a PCP but does not recall name. Pharmacy is [facility] in [place]. Discharge POC: Anticipate home with NN vs HH RN. Keep eye out for O2 needs. No O2 at baseline.
--- NOTE | 2025-05-06 14:00 | PTCARENOTE ---
Pt was transfered to IVU with volunteer on stretcher, belonging sent downstairs with family.
--- NOTE | 2025-05-06 14:26 | W.PN.INTV ---
Today's Communication / Plan
Recommendations
- Give 40 mEq KCl p.o. and 1 g magnesium sulfate IV
- BiPAP to be used as needed
- Patient can transfer out of ICU
- Research Computing Specialist service will sign off, please call as needed
Assessment
-
Patient is a 84-year-old gentleman with known history of coronary artery bypass graft as well as aortic stenosis status postsurgical valve replacement in 2017 who presented to the emergency room with chest discomfort intermittently going on for few
days and mostly between the shoulder blades. Pain improves with rest and associated with dyspnea. Patient received a dose of aspirin and was brought to the emergency room with a STEMI alert. Patient was taken to [facility] and had a coronary
angiogram performed. In the [facility], no culprit lesions were noted, patent grafts, however elevated LV diastolic pressure to 40 along with severe aortic stenosis as well as decompensated heart failure felt to be the etiology of symptoms. Patient
was placed on BiPAP due to respiratory distress and was admitted to ICU. Research Computing Specialist consultation was requested for further input.
Patient has been noticing pedal edema over the last few days. Also reported paroxysmal nocturnal dyspnea as well as orthopnea. Reports feeling better while on BiPAP.
#1. Acute hypoxic respiratory failure
- Suspect related to decompensated heart failure in the setting of severe aortic stenosis
- Responded well to BiPAP on initial admission followed by aggressive diuresis. Off BiPAP since last night now, saturating 93% on 2 L supplemental oxygen, work of breathing normal.
- Continue IV diuresis, potassium supplementation
#2. Pulmonary edema with acute on suspect chronic congestive heart failure, LVEF 30-35%
- EF is reduced
- Suspect critical aortic stenosis is the driving factor behind decompensated heart failure
- BIPAP support as needed, IV Lasix. Ins and out, -2.6 L over 24 hours.
#3. Concern for ST elevation FL
- ST elevation in lateral leads as well as elevated troponin noted. Patient on aspirin, heparin drip, was emergently taken to [facility]. Angiogram without major vessel blockage, ?small vessel disease
- Management per cardiology service, continue ASA/heparin infusion.
#4. H/o CAD, s/p CABG (01/2017)
- Continue ASA, Metoprolol, Heparin infusion
#5. 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
- Appears to be recurrence of severe aortic stenosis
- Monitor closely with ongoing diuresis, await further recommendations from cardiology service
#6. H/o COPD
- Patient quit smoking about 8 years ago
- Uses Trelegy at home, currently on DuoNeb scheduled 4 times daily along with budesonide twice daily, can switch back to Trelegy at discharge.
- No wheezing on exam, current presentation not suggestive of COPD exacerbation
Other medical diagnoses:
- HTN
- HLD
- BPH
Critical Care time 45 mins -- The patient is admitted for acute critical illness for the treatment of vital organ failure and/or prevention of further life-threatening conditions. Total care includes time spent in review of history, physical exam,
medications, hemodynamic/ventilator parameters, laboratory data, imaging and discussion with house staff, pharmacy, respiratory therapy, tax compliance agent, and nursing.
Data:
EKG 04/2025: ST elevation in lateral leads.
ECHO 08/2024: 1. Normal chamber sizes.
2. Moderate to severe aortic stenosis
3. Normal left and right ventricular systolic function.
4. Grade 1 diastolic dysfunction
5. Normal right ventricular systolic pressure.
PFT 03/2023: FEV1 75% of predicted, FVC 63% of predicted, FEV1/FVC of 83. Total lung capacity reduced at 54% of predicted. Diffusion capacity reduced at 13.79, 59% of predicted. Spirometry without evidence of obstruction. Moderate restriction
suggested by reduced FVC as well as reduced total lung capacity along with reduced diffusion capacity.
Subjective Dataa
Subjective Data
Date of Service:
Date of Service: May 06, 2025
Subjective:
Comfortably sitting in chair in no acute distress.
Review of Systems
Genitourinary: Other (All 14 systems reviewed and negative except as stated above in the history of present illness.)
Objective Data
Data Reviewed
Vital Signs / I&O / Oxygen:
Vital Signs
Temp Pulse Resp BP Pulse Ox
97.5 F 104 20 129/60 92
05/06/25 11:20 05/06/25 12:06 05/06/25 12:06 05/06/25 11:00 05/06/25 13:22
Intake and Output
05/05/25 05/06/25 05/07/25
06:59 06:59 06:59
Intake Total 264.4 / 275.4 437 / 437
Output Total 2835 / 2885 805 / 805
Balance -2570.6 / -2609.6 -368 / -368
SaO2 92
Nasal Cannula flow liters per 2
minute
Physical Exam
General: Comfortable
HEENT: Normocephalic
Cardiovascular: S1-S2
Respiratory: Crackles (Few inspiratory crackles in the bases)
GI: Soft and Non Distended
Neurology: Awake and Alert
Skin: Warm
Labs/Micro/Reports
Lab Data
05/06/25 05:32
05/06/25 05:32
Laboratory Results
05/05/25 05/05/25 05/05/25
17:35 18:20 23:44
PT Cancelled 14.3
INR Cancelled 1.06
APTT Cancelled 28.0 61.7 H
05/06/25
08:11
PT
INR
APTT 73.5 H
[2025-05-06 15:43] LABS: APTT 96.2 Sec (23.4-35.0)
--- NOTE | 2025-05-06 16:00 | PTCARENOTE ---
Received pt from ICU, monitor showing SR-ST w/ BBB, VSS. Lungs diminished, +REYES, +orthopnea, RA pulse ox 93%. Right groin cath site dressing scant amount old drainage noted and marked, area soft, no ecchymosis. Left groin with MASD noted, desenex
applied on previous unit. Hatch draining dark yellow urine. Heparin infusing @1100u/hr, repeat PTT sent. Oriented to room, family at bedside, call light in reach.
[2025-05-06] MEDS: MAGNESIUM SULFATE 102 GRAMS IV (16:12)
[2025-05-06] MEDS: HEPARIN 25000 UNITS/250 ML IV (17:15)
[2025-05-06] MEDS: LOPRESSOR 50 MG PO (21:01)
[2025-05-06] MEDS: DIOVAN 40 MG PO (21:02)
[2025-05-06] MEDS: LIPITOR 80 MG PO (21:46)
[2025-05-07] VITALS (11 sets, daily range): BP systolic 91–114; BP diastolic 47–70; BMI 32.4; BMI 32.6
[2025-05-07 05:04] LABS: Hematocrit 43.3 % (39.0-52.0); Hemoglobin 15.0 g/dL (13.0-18.0); Mean Corp Hgb Conc. 34.6 g/dL (33.0-37.0); Mean Corpuscular Volume 94.7 fL (80.0-94.0); Platelet Count 121 10^3/uL (130-400); Red Cell Dist. Width 14.3 % (11.5-14.5)
[2025-05-07 05:15] LABS: APTT 94.1 Sec (23.4-35.0)
[2025-05-07 05:21] LABS: ALT (SGPT) 44 U/L (0-50); AST (SGOT) 221 U/L (17-59); Albumin 4.1 g/dl (3.5-5.0); Alkaline Phosphatase 70 U/L (38-126); Blood Urea Nitrogen 31 mg/dl (9-20); Calcium 9.2 mg/dl (8.4-10.2); Carbon Dioxide 29 mmol/L (22-30); Chloride 100 mmol/L (98-107); Estimated Creatinine Clearance 49 ml/min; Glucose 134 mg/dl (70-99); Potassium 3.7 mmol/L (3.5-5.1); Sodium 136 mmol/L (135-145); Total Protein 7.0 g/dl (6.3-8.2); eGFR 54.17
--- NOTE | 2025-05-07 06:26 | PTCARENOTE ---
Pt NSR on monitor, VSS. Denies pain this shift. Using oxygen on/off, c/o SOB but improved per patient. Ambulates with x 1 assist
[2025-05-07] MEDS: DUONEB 3 ML INH ×4 (08:05→19:16)
[2025-05-07] MEDS: PULMICORT 0.5 MG INH ×2 (08:05→19:16)
[2025-05-07] MEDS: SENOKOT 8.6 MG PO (08:08)
[2025-05-07] MEDS: ASPIR LOW (ENTERIC COATED) 81 MG PO (08:08)
[2025-05-07] MEDS: DIOVAN 40 MG PO ×2 (08:08→20:37)
[2025-05-07] MEDS: LASIX 40 MG IV (08:11)
[2025-05-07] MEDS: LOPRESSOR 50 MG PO ×2 (08:12→20:36)
--- NOTE | 2025-05-07 09:17 | W.PN.CD ---
Today's Communication / Plan
-
continue iv diuresis with intensive monitoring
will back off to daily IV lasix
hep gtt with intensive monitoring until 18:00
Impression / Plan
-
Primary care physician: DENICE Prakash
Primary hvac sheet metal installer helper: Troy Katz MD
84 year old with history of AVR/CABGx2 (2017, SALAMANCA-LAD, SVG-OM, unable to graft PDA), presenting with several days of worsening shortness of breath and orthopnea and shoulder pain, found to have anterior/inferior HEATHER on EKG. Cath 05/05 with
profoundly elevated LV filling pressure, at least moderate-severe bio , and no clear culprit lesion (patnet SALAMANCA but poor outflow in a diffusely diseased, atretic LAD, patent SVG-OM). TTE with severely decreased EF ~30%, but strangely did not
demonstrate any with gradient of 2 mmHg (likely CW missing the valve).
#Hypoxic respiratory failure
#TYPE II MT: in setting of acute hypoxic respiratory failure and heart failure
-given initial presentation, plan is for 48 hours of heparin
-cont. ASA/statin
#Severe acute systolic heart failure with severely reduced ejection fraction
-New EF drop fom normal (09/07) to 30%
-possible etiology worsening prostetic stenosis
-cont. IV diuresis with intensive monitoring, will decrease to daily.
-GDMT: valsartan added, BB continued
-eventual SGLT2i/MRA consideration, will hold off in he case dye load needed.
#Severe s/p BIO , with at least moderate stenosis: Repeat imaging pk gradient 26 DVI 0.32 on my review of images, EF 30%. This could be understimated with low EF.
-as per Dr Witt: - TAVR CT pending lower heart rate and less ectopy, pending course and anatomy will consider inpatient vs. outpatient valve replacement
#Tea colored urine:bili rising, could be some element of hematuria but hgb stable, will d/w Dr Dawson
#COPD/former tobacco - check cxr, resume home inhalers/nebs as needed
#HTN - GDMT as above
#Hyperlipidemia - continue statin, eventual PCSK9i for goal LDL<40
#BPH
#Anxiety
He is still a bit winded with movement but improving. no cp
Physical Exam
Vital Signs/Labs
Vital Signs
Temp Pulse Resp BP Pulse Ox
97.7 F 102 16 102/58 94
05/07/25 07:46 05/07/25 08:18 05/07/25 08:18 05/07/25 08:11 05/07/25 08:18
05/06/25 05/07/25 05/08/25
06:59 06:59 06:59
Actual Weight 231 lb 14.821 oz 219 lb 5.759 oz
05/07/25 04:01
05/07/25 04:01
PT 14.3 Sec (11.4-14.6) 05/05/25 18:20
INR 1.06 05/05/25 18:20
APTT 94.1 Sec (23.4-35.0) H 05/07/25 04:01
Magnesium 1.8 mg/dl (1.6-2.3) 05/06/25 05:32
Triglycerides 77 mg/dl (10-149) 05/06/25 05:32
LDL Cholesterol, Calc 58 mg/dl 05/06/25 05:32
VLDL Cholesterol, Calc 15 mg/dl (0-30) 05/06/25 05:32
HDL Cholesterol 71 mg/dl 05/06/25 05:32
LAB Results
05/05/25 05/05/25 05/05/25
11:12 11:42 17:35
Troponin I Cancelled 4.000 H* 74.200 H* D
05/05/25 05/06/25 05/06/25
23:44 00:00 05:32
Troponin I 98.800 H* D Cancelled 78.400 H*
Physical Exam
Constitutional: No acute distress
Cardiovascular: Rhythm & rate is regular, Pedal edema is absent, Diastolic murmur absent and Systolic murmur present
Respiratory: Respiratory effort normal and Crackles Present (bibasilarly)
Neuro/Psych: AO x 3
Data Reviewed
-
Date of Service: May 07, 2025
Medical Decision Making: Review of Case with other Provider (Discussed with Dr. Dawson, decreasing IV Lasix heparin drip to finish at the end of the day.)
EKG: Other (Telemetry sinus tachycardia with PVCs.)
--- NOTE | 2025-05-07 12:02 | W.PN.HOSP.TC ---
Today's Communication/Plan
-
Check additional LFTs
Check abdominal ultrasound
Monitor urine output
Agree with decreasing Lasix
Heparin drip to be stopped at 6 PM
Assessment / Plan
Assessment / Plan
General: Comfortable and Conversant
HEENT: normocephalic, Anicteric, [place] Conjunctivae, No Ptosis
Respiratory: Mild basilar rhonchi, on room air
Cardiac: S1/S2, Regular Rhythm, Murmur (3/6 systolic) and Peripheral Edema (+1 nonpitting bilateral lower leg-improvement
GI: Soft, Non Tender, Non Distended, Normal Bowel Sounds and No Hepatosplenomegaly
Genito-urinary: Hatch with dark tea colored urine. Urine dark in tubing.
Musculoskeletal: LE edema
Skin: Warm and Dry; No Rash
Neuro: AO x 3, No Motor Deficits, Nonfocal/grossly intact,
Psych: Calm
#Acute hypoxic respiratory failure likely secondary to acute HFrEF in the setting of severe aortic stenosis
#AVR with severe
Patient requiring BiPAP 15/5 with 12 L O2 on admission and now down trended to 2 L
- IV Lasix 40 mg twice daily and now decreased to daily
- Off IV nitro drip
- Trend creatinine. Mild bump noted.
- Seems to be having good urine output
- ECHO-normal left ventricular size and moderate to severe reduced systolic function. EF of 30%. Hyperdynamic base with hypo-/akinesis of the remaining neal. Possible stress-induced cardiomyopathy. Normal biventricular size and function.
- Cont asa/statin/toprol/Valsartan. Consider SGLT2 inhibitor.
#CAD/CABG x 2
# Elevated troponin likely type II [place] in the setting of severe heart failure exacerbation
-s/p cardiac catheterization without clear infarct.
-Continue with aspirin, high-dose statin
-Plan to continue heparin drip for 48 hours.
# Hyperbilirubinemia
Possibility of decreased perfusion versus biliary congestion versus Gilbert versus obstruction
Check Abdominal ultrasound
Check indirect and direct bilirubin, GGT.
No abdominal pain. Denies any right upper quadrant pain with meals. No nausea no vomiting.
Did have some increasing bilirubin in 2017.
AST elevated. Mild improvement noted. Could be lagging from hypoperfusion. Will monitor closely.
#Leukocytosis
-likely reactive
-trend for now
#HTN
-Monitor BP closely with diuretics
#COPD no acute exacerbation
Ex-smoker 30 to 40 years quit 10 years ago
Bronchodilators per pulm
#GERD
Continue Protonix 40 mg daily
#BPH with urinary retention
-Hatch catheter for now.
-eventaully voiding trial
#Class II obesity�BMI 34
Weight loss recommended
# Chronic thrombocytopenia
Trend platelets for now
DVT prophylaxis -Iv heparin gtt
Full code
Anticipated Discharge: > 48 hours
Subjective/Interval History
-
Date of Service: May 07, 2025
States improvement in breathing
No chest pain currently
Objective Data
-
Labs:
Laboratory Results
05/07/25
04:01
WBC 16.0 H
Hgb 15.0
Hct 43.3
Plt Count 121 L
APTT 94.1 H
Sodium 136
Potassium 3.7
Chloride 100
Carbon Dioxide 29
BUN 31 H
Creatinine 1.3
Glucose 134 H
Calcium 9.2
Total Bilirubin 7.6 H D
AST 221 H
ALT 44
Alkaline Phosphatase 70
Vital Signs:
Vital Signs
Temp Pulse Resp BP Pulse Ox
97.7 F 104 16 102/58 95
05/07/25 07:46 05/07/25 11:31 05/07/25 11:31 05/07/25 08:11 05/07/25 11:31
I&O
05/06/25 05/07/25 05/08/25
06:59 06:59 06:59
Intake Total 264.4 / 275.4 437 / 437
Output Total 2835 / 2885 1680 / 1680
Balance -2570.6 / -2609.6 -1243 / -1243
Data Reviewed
-
Total Time Spent with Patient (in minutes): 56
[2025-05-07 12:56] LABS: GGTP 23 U/L (15-73)
--- NOTE | 2025-05-07 13:54 | PTCARENOTE ---
pt OOB to chair. RA. denies pain/SOB. attending aware of tea colored urine with sediment. Add on labs, abd US in AM will be NPO. Daughter at bedside, aware of and in agreement with POC. No further change in physical assessment. CB in reach- reminded
to use
--- NOTE | 2025-05-07 15:20 | PTCARENOTE ---
Rec'd Pt sitting OOB in chair, A,A+OX3, no c/o pain
--- NOTE | 2025-05-07 18:21 | PTCARENOTE ---
Heparin drip d/c'd at 1800 as ordered, Pt resting in bed, family visiting.
[2025-05-07] MEDS: LIPITOR 80 MG PO (21:09)
[2025-05-07] MEDS: TYLENOL 650 MG PO (21:09)
[2025-05-08] VITALS (9 sets, daily range): BP systolic 91–102; BP diastolic 47–64; PULSE 109–120; BMI 32.4
--- NOTE | 2025-05-08 04:41 | PTCARENOTE ---
[place] OOB to chair intermittently through night. Ax1 to bathroom. Patient states he feels anxious regarding poss TAVR. Nursing support offered. Tele ST/SR with [facility]. Sat 96% on room air. Mild REYES and orthopnea noted. Patient declined O2. NPO
for abdominal US this am.
[2025-05-08 05:28] LABS: APTT 36.2 Sec (23.4-35.0)
[2025-05-08 05:42] LABS: ALT (SGPT) 37 U/L (0-50); AST (SGOT) 129 U/L (17-59); Albumin 3.8 g/dl (3.5-5.0); Alkaline Phosphatase 67 U/L (38-126); Blood Urea Nitrogen 54 mg/dl (9-20); Calcium 9.4 mg/dl (8.4-10.2); Carbon Dioxide 28 mmol/L (22-30); Chloride 98 mmol/L (98-107); Estimated Creatinine Clearance 38 ml/min; GGTP 24 U/L (15-73); Glucose 129 mg/dl (70-99); Potassium 3.6 mmol/L (3.5-5.1); Sodium 132 mmol/L (135-145); Total Protein 6.7 g/dl (6.3-8.2); eGFR 39.26
[2025-05-08] MEDS: DUONEB 3 ML INH ×2 (07:35→11:17)
[2025-05-08] MEDS: PULMICORT 0.5 MG INH (07:35)
--- NOTE | 2025-05-08 07:54 | W.PN.CD ---
Today's Communication / Plan
-
Hold IV Lasix
Hold valsartan
Monitor creatinine for improvement.
Reconsider resumption of diuresis in AM.
Check orthostatics
Impression / Plan
-
Primary care physician: DENICE Prakash
Primary site reliability engineer: Troy Katz MD
84 year old with history of AVR/CABGx2 (2017, SALAMANCA-LAD, SVG-OM, unable to graft PDA), presenting with several days of worsening shortness of breath and orthopnea and shoulder pain, found to have anterior/inferior HEATHER on EKG. Cath 05/05 with
profoundly elevated LV filling pressure, at least moderate-severe bio , and no clear culprit lesion (patnet SALAMANCA but poor outflow in a diffusely diseased, atretic LAD, patent SVG-OM). TTE with severely decreased EF ~30%, but strangely did not
demonstrate any with gradient of 2 mmHg (likely CW missing the valve).
#Hypoxic respiratory failure
#TYPE II NM: in setting of acute hypoxic respiratory failure and heart failure
-given initial presentation, completed 48 hours of heparin
-cont. ASA/statin
#Severe acute systolic heart failure with severely reduced ejection fraction
-New EF drop fom normal (09/07) to 30%, LVEDP was 47 on admission
-unclear etiology at this time.
- Creatinine increasing, will hold further diuresis today. Will reconsider resumption tomorrow. Given LVEDP, would likely still benefit from diuresis.
-GDMT: valsartan added but will hold with LEROY, BB continued but can try to increase tomorrow as still sinus tachy
-eventual SGLT2i/MRA consideration, will hold with LEROY
-will have to pick a dry weight, has been losing at home
#LEROY:
Suspect multifactorial, but timing of contrast exposure, relative hypotension, and diuresis likely are playing a role. Will hold further diuresis today. Likely resume tomorrow if improvement.
Hold valsartan
Trend closely
#Severe s/p BIO , with at least moderate stenosis: Repeat imaging pk gradient 26 DVI 0.32 on my review of images, EF 30%. This could be understimated with low EF.
-as per Dr Witt: -Repeat echo images with less impressive at the bioprosthetic valve.
- Will optimize and reconsider need for valve replacement as an outpatient.
#Tea colored urine:bili rising, could be some element of hematuria but hgb stable, will d/w Dr Dawson
#COPD/former tobacco - check cxr, resume home inhalers/nebs as needed
#HTN - GDMT as above
#Hyperlipidemia - continue statin, eventual PCSK9i for goal LDL<40
#BPH
#Anxiety
He is still a bit winded with movement but improving. no cp
Physical Exam
Vital Signs/Labs
Vital Signs
Temp Pulse Resp BP Pulse Ox
98.6 F 87 20 94/60 98
05/08/25 07:41 05/08/25 07:37 05/08/25 07:41 05/08/25 04:07 05/08/25 07:41
05/07/25 05/08/25 05/09/25
06:59 06:59 06:59
Actual Weight 219 lb 5.759 oz 219 lb 9.286 oz
05/07/25 04:01
05/08/25 04:32
PT 14.3 Sec (11.4-14.6) 05/05/25 18:20
INR 1.06 05/05/25 18:20
APTT 36.2 Sec (23.4-35.0) H 05/08/25 04:32
Magnesium 1.8 mg/dl (1.6-2.3) 05/06/25 05:32
Triglycerides 77 mg/dl (10-149) 05/06/25 05:32
LDL Cholesterol, Calc 58 mg/dl 05/06/25 05:32
VLDL Cholesterol, Calc 15 mg/dl (0-30) 05/06/25 05:32
HDL Cholesterol 71 mg/dl 05/06/25 05:32
LAB Results
05/05/25 05/05/25 05/05/25
11:12 11:42 17:35
Troponin I Cancelled 4.000 H* 74.200 H* D
05/05/25 05/06/25 05/06/25
23:44 00:00 05:32
Troponin I 98.800 H* D Cancelled 78.400 H*
Physical Exam
Constitutional: No acute distress
Cardiovascular: Rhythm & rate is regular and Systolic murmur present (2/6 crescendo decrescendo at the rusb)
Respiratory: Respiratory effort normal, Lungs clear to auscul., Wheeze Absent, Crackles Absent and Rhonchi Absent
Neuro/Psych: AO x 3
Data Reviewed
-
Date of Service: May 08, 2025
Medical Decision Making: Review of Case with other Provider (d/w Dr Samir farnsworth )
EKG: Other (tele sinus tachy)
[2025-05-08] MEDS: ASPIR LOW (ENTERIC COATED) 81 MG PO (09:00)
[2025-05-08] MEDS: SENOKOT 8.6 MG PO (09:00)
[2025-05-08] MEDS: DIOVAN PO (09:02)
[2025-05-08] MEDS: LOPRESSOR PO (09:03)
--- NOTE | 2025-05-08 09:27 | PTCARENOTE ---
Pt went for abdominal ultrasound this morning. Metoprolol and Diovan am doses not given due to low BP 98/55, held as per parameters ordered. He denies and lightheadedness or dizziness. Pt aware that we need urine specimen.
--- NOTE | 2025-05-08 12:22 | W.PN.HOSP.TC ---
Addendum entered and electronically signed by Ramirez Dawson MD 05/08/25 14:22:
FENA with pre-renal likely could be from JOAN vs. overdiuresis -as cardiac cath 72h ago.
Original Note:
Today's Communication/Plan
-
lasix stopped
TOV
Trend cr
trend LFts
diet restarted
monitor BP
Assessment / Plan
Assessment / Plan
General: Comfortable and Conversant
HEENT: normocephalic, Anicteric, [place] Conjunctivae, No Ptosis
Respiratory: Mild basilar rhonchi, on room air
Cardiac: S1/S2, tachycardia,
GI: Soft, Non Tender, Non Distended, Normal Bowel Sounds and No Hepatosplenomegaly
Genito-urinary: Aponte with dark tea colored urine. Urine dark in tubing.
Musculoskeletal: LE edema
Skin: Warm and Dry; No Rash
Neuro: AO x 3, No Motor Deficits, Nonfocal/grossly intact,
Psych: anxious
#Acute hypoxic respiratory failure likely secondary to acute HFrEF in the setting of severe aortic stenosis
#AVR with severe
Patient requiring BiPAP 15/5 with 12 L O2 on admission and now on room air.
- IV Lasix 40 mg twice daily and now stopped due to bump in Cr.
- Off IV nitro drip
- ECHO-normal left ventricular size and moderate to severe reduced systolic function. EF of 30%. Hyperdynamic base with hypo-/akinesis of the remaining neal. Possible stress-induced cardiomyopathy. Normal biventricular size and function.
- Cont asa/statin/toprol. Consider SGLT2 inhibitor. Valsartan added during this admission. BP soft and bump in cr. May need to decrease dose.
#CAD/CABG x 2
# Elevated troponin likely type II [place] in the setting of severe heart failure exacerbation
-s/p cardiac catheterization without clear infarct.
-Continue with aspirin, high-dose statin
-s/p heparin drip for 48 hours.
#LEROY likely secondary to contrast-induced nephropathy versus overdiuresis
- Check urine studies. Diuretics held. Avoid hypotension.
- Trend cr for now.
- bladder scan protocol
# Indirect hyperbilirubinemia
Possibility of decreased perfusion versus biliary congestion versus Gilbert versus obstruction
Check Abdominal ultrasound-found to have gallstones and sludge. No obstruction.
GGT normal
No abdominal pain. Denies any right upper quadrant pain with meals. No nausea no vomiting.
Did have some increasing bilirubin in 2017.
AST elevated. Mild improvement noted. Could be lagging from hypoperfusion. Will monitor closely.
Continue to trend.
#Leukocytosis
-likely reactive
-trend for now remains afebrile.
#HTN
- Now controlled.
#COPD no acute exacerbation
Ex-smoker 30 to 40 years quit 10 years ago
Bronchodilators per pulm
#GERD
Continue Protonix 40 mg daily
#BPH with urinary retention
-Aponte catheter for now.
-eventaully voiding trial
#Class II obesity�BMI 34
Weight loss recommended
# Chronic thrombocytopenia
Trend platelets for now
DVT prophylaxis hep sc
Full code
Anticipated Discharge: > 48 hours
Subjective/Interval History
-
Date of Service: May 08, 2025
states he is anxious about aortic valve
aponte removed earlier today
Objective Data
-
Labs:
Laboratory Results
05/08/25
04:32
APTT 36.2 H
Sodium 132 L
Potassium 3.6
Chloride 98
Carbon Dioxide 28
BUN 54 H
Creatinine 1.7 H
Glucose 129 H
Calcium 9.4
Total Bilirubin 7.4 H
AST 129 H
ALT 37
Alkaline Phosphatase 67
Vital Signs:
Vital Signs
Temp Pulse Resp BP Pulse Ox
97.8 F 111 18 98/56 96
05/08/25 11:53 05/08/25 11:53 05/08/25 11:53 05/08/25 09:03 05/08/25 11:53
I&O
05/07/25 05/08/25 05/09/25
06:59 06:59 06:59
Intake Total 437 / 437 240 / 240
Output Total 1680 / 1680 650 / 650
Balance -1243 / -1243 -410 / -410
[2025-05-08 14:40] LABS: Body Fluid for Eosinophils No Eosinophils seen
--- NOTE | 2025-05-08 15:46 | PTCARENOTE ---
Pt voided 50 ml since aponte was d/c'd. Bladder scanned for [address] Dawson notified, will encourage po fluids, IV NSS at 65ml/hr ordered and started.
[2025-05-08] MEDS: NSS 500 IV (15:52)
[2025-05-08] MEDS: PULMICORT INH (20:02)
[2025-05-08] MEDS: LIPITOR 80 MG PO (21:00)
[2025-05-08] MEDS: HEPARIN 5000 UNITS SC (21:00)
[2025-05-08] MEDS: LOPRESSOR 50 MG PO (21:00)
--- NOTE | 2025-05-08 22:09 | PTCARENOTE ---
Received pt @ change of shift. AAOx3, little flat and agitated. Pt stated 'don't you know I have not slept in 3 days' when RN was giving evening medications. Sinus tach w/ BBB and PVCs on monitor, other VSS. Right groin site LEANDRO, little ecchymosis
but soft to touch. Pt asked if we could stop IV fluids-- RN educated on why fluids were running-- pt verbalizes understanding and agrees to keep them running. RN also encouraged oral fluids. Plan of care ongoing. Call light within reach.
--- NOTE | 2025-05-08 22:42 | PTCARENOTE ---
Pt feeling SOB. 02 stat 97% on room air. Pt felt could be anxiety. Pt denies anxiety prior to admission. Moved to chair to rest, 02 given for comfort. Discussed disconnecting NSS as soon as completed to help reduce anxiety. Plan of care ongoing.
Call light within reach.
[2025-05-09] VITALS (15 sets, daily range): BP systolic 69–151; BP diastolic 11–126; BMI 32.8
[2025-05-09 05:38] LABS: Hematocrit 39.9 % (39.0-52.0); Hemoglobin 13.9 g/dL (13.0-18.0); Mean Corp Hgb Conc. 34.8 g/dL (33.0-37.0); Mean Corpuscular Volume 94.3 fL (80.0-94.0); Nucleated Red Blood Cells % 0 % (-); Platelet Count 143 10^3/uL (130-400); Red Cell Dist. Width 14.6 % (11.5-14.5)
[2025-05-09 05:57] LABS: ALT (SGPT) 43 U/L (0-50); AST (SGOT) 154 U/L (17-59); Albumin 3.6 g/dl (3.5-5.0); Alkaline Phosphatase 59 U/L (38-126); Blood Urea Nitrogen 74 mg/dl (9-20); Calcium 8.6 mg/dl (8.4-10.2); Carbon Dioxide 27 mmol/L (22-30); Chloride 99 mmol/L (98-107); Estimated Creatinine Clearance 32 ml/min; Glucose 151 mg/dl (70-99); Potassium 3.8 mmol/L (3.5-5.1); Sodium 134 mmol/L (135-145); Total Protein 6.4 g/dl (6.3-8.2); eGFR 32.30
[2025-05-09] MEDS: PULMICORT 0.5 MG INH (07:40)
[2025-05-09] MEDS: DUONEB 3 ML INH ×2 (07:40→14:18)
[2025-05-09] MEDS: ASPIR LOW (ENTERIC COATED) 81 MG PO (08:15)
[2025-05-09] MEDS: LOPRESSOR 50 MG PO (08:15)
[2025-05-09] MEDS: HEPARIN 5000 UNITS SC (08:15)
[2025-05-09] MEDS: SENOKOT PO (08:16)
--- NOTE | 2025-05-09 09:36 | W.PN.HOSP.TC ---
Today's Communication/Plan
-
Trend creatinine
Assessment / Plan
Assessment / Plan
Gen-AAOx3, NAD
HEENT-NC, AT, anicteric, clear oral mm
Neck-supple
CV-reg, no M, +S1/S2
Lungs-clear B/L
Abd-soft, NT, ND
Ext-no edema
Musculoskeletal-no cyanosis, clubbing
Skin-warm and dry
Neuro-grossly non-focal
Psych-calm, cooperative
Acute hypoxic respiratory failure -likely secondary to acute HFrEF in the setting of severe aortic stenosis
Oxygenation improved, now on room air.
AVR with severe
Patient requiring BiPAP 15/5 with 12 L O2 on admission and now on room air.
- IV Lasix 40 mg twice daily and now stopped due to LEROY
- Off IV nitro drip
- ECHO-normal left ventricular size and moderate to severe reduced systolic function. EF of 30%. Hyperdynamic base with hypo-/akinesis of the remaining neal. Possible stress-induced cardiomyopathy. Normal biventricular size and function.
- Cont asa/statin/toprol. Consider SGLT2 inhibitor. Valsartan added during this admission. BP soft and bump in cr. May need to decrease dose.
CAD/CABG x 2
Elevated troponin likely type II SC in the setting of severe heart failure exacerbation
-s/p cardiac catheterization without clear infarct.
-Continue with aspirin, high-dose statin
-s/p heparin drip for 48 hours.
LEROY -likely secondary to contrast-induced nephropathy versus overdiuresis
Holding Lasix, valsartan.
Creatinine unfortunately rising, 2.0 today.
Fena 0.08%.
Bladder scan this morning 139 cc.
Indirect hyperbilirubinemia
Possibility of decreased perfusion versus biliary congestion versus Gilbert versus obstruction
Check Abdominal ultrasound-found to have gallstones and sludge. No obstruction.
GGT normal
No abdominal pain. Denies any right upper quadrant pain with meals. No nausea no vomiting.
Did have some increasing bilirubin in 2017.
AST elevated. Mild improvement noted. Could be lagging from hypoperfusion. Will monitor closely.
Continue to trend.
Leukocytosis
-likely reactive. WBC count trending down. Afebrile.
Essential HTN -relative hypotension noted. Metoprolol has hold parameters. Valsartan on hold for LEROY.
Orthostatic vitals negative.
COPD no acute exacerbation
Ex-smoker 30 to 40 years quit 10 years ago
Bronchodilators per pulm
GERD
Continue Protonix 40 mg daily
BPH with urinary retention
-Hatch catheter for now.
-eventaully voiding trial
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
Weight loss recommended
Chronic thrombocytopenia -unclear etiology. Platelet count improved today, 143K.
DVT prophylaxis hep sc
Full code
Anticipated Discharge: 24 - 48 hours
Subjective/Interval History
-
Date of Service: May 09, 2025
Patient seen and examined. Complaining of dyspnea. Denies chest pain.
Objective Data
-
Labs:
Laboratory Results
05/09/25
05:10
WBC 13.0 H
Hgb 13.9
Hct 39.9
Plt Count 143
Sodium 134 L
Potassium 3.8
Chloride 99
Carbon Dioxide 27
BUN 74 H
Creatinine 2.0 H
Glucose 151 H
Calcium 8.6
Total Bilirubin 5.3 H
AST 154 H
ALT 43
Alkaline Phosphatase 59
Vital Signs:
Vital Signs
Temp Pulse Resp BP Pulse Ox
97.8 F 109 18 103/61 96
05/09/25 08:05 05/09/25 08:15 05/09/25 08:05 05/09/25 08:15 05/09/25 08:05
I&O
05/08/25 05/09/25 05/10/25
06:59 06:59 06:59
Intake Total 240 / 240 1160 / 1160
Output Total 650 / 650 225 / 225 50 / 50
Balance -410 / -410 935 / 935 -50 / -50
Review of Systems
-
History Source: Patient
All other systems: Reviewed and negative
--- NOTE | 2025-05-09 10:00 | PTCARENOTE ---
Assumed care of patient at 0645. Assessment completed and documented in shift assessment on worklist. Patient awaiting plan of care update from medical team. Lasix still on hold, creatinine bumped to 2.0 today.
[2025-05-09] MEDS: ZOFRAN 4 MG IV (12:17)
--- NOTE | 2025-05-09 12:41 | CM ---
spoke to pt in room, he is prev indep, lives alone in a 2 story home with 2 steps to enter. he denies any d,e's or dc planning needs. plan is for dc to home when medically stable.
[2025-05-09] MEDS: ATIVAN 0.5 MG PO (15:05)
--- NOTE | 2025-05-09 16:59 | W.PN.CD ---
Today's Communication / Plan
-
will reconsider diuresis tomorrow vs. RHC if Cr does not improve
GDMT as tolerated
Impression / Plan
-
Primary care physician: DENICE Prakash
Primary cancer program coordinator: Troy Katz MD
84 year old with history of AVR/CABGx2 (2017, SALAMANCA-LAD, SVG-OM, unable to graft PDA), presenting with several days of worsening shortness of breath and orthopnea and shoulder pain, found to have anterior/inferior HEATHER on EKG. Cath 05/05 with
profoundly elevated LV filling pressure, at least moderate-severe bio , and no clear culprit lesion (patnet SALAMANCA but poor outflow in a diffusely diseased, atretic LAD, patent SVG-OM). TTE with severely decreased EF ~30% and mod-severe bio .
#Hypoxic respiratory failure
#TYPE II NE: in setting of acute hypoxic respiratory failure and heart failure
-given initial presentation, completed 48 hours of heparin
-cont. ASA/statin
-CXR today with stable mild pulmonary edema
#Severe acute systolic heart failure with severely reduced ejection fraction
-New EF drop fom normal (09/07) to 30%, LVEDP was 47 on admission
-unclear etiology at this time; seems out of proportion to degree of bioprosthetic aortic valve stenosis, which seems stably moderate-severe; presentation did not seem consistent with a type I NE
-Creatinine increasing, will hold further diuresis and hold valsartan
-GDMT: valsartan added but will hold with LEROY, BB continued, may need to be increased further, still in sinus tachycardia
-eventual SGLT2i/MRA consideration, will hold with LEROY
#LEROY:
Suspect multifactorial, but timing of contrast exposure, relative hypotension, and diuresis likely are playing a role. Will hold further diuresis today. Likely resume tomorrow if improvement.
Hold valsartan
Trend closely
Consider RHC if not improving tomorrow
#Severe s/p BIO , with at least moderate stenosis: Repeat imaging pk gradient 26 DVI 0.32 on my review of images, EF 30%. This could be understimated with low EF.
-repeat echo images suggest less than severe bioprosthetic
-Will optimize and reconsider need for valve replacement as an outpatient.
#Tea colored urine: bili rising, could be some element of hematuria but hgb stable, will d/w Dr Dawson
#COPD/former tobacco - check cxr, resume home inhalers/nebs as needed
#HTN - GDMT as above
#Hyperlipidemia - continue statin, eventual PCSK9i for goal LDL<40
#BPH
#Anxiety
CXR 05/09/25
Patchy parenchymal opacity within both lower lungs, most likely atelectasis. Subtle peribronchial thickening bilaterally, suggesting bronchitis.
SOB a bit worse today, no more shoulder pain
Physical Exam
Vital Signs/Labs
Vital Signs
Temp Pulse Resp BP Pulse Ox
36.8 C 112 18 92/55 97
05/09/25 15:39 05/09/25 15:40 05/09/25 15:39 05/09/25 15:40 05/09/25 15:40
05/08/25 05/09/25 05/10/25
06:59 06:59 06:59
Actual Weight 99.6 kg 100.7 kg
05/09/25 05:10
05/09/25 05:10
PT 14.3 Sec (11.4-14.6) 05/05/25 18:20
INR 1.06 05/05/25 18:20
APTT 36.2 Sec (23.4-35.0) H 05/08/25 04:32
Magnesium 1.8 mg/dl (1.6-2.3) 05/06/25 05:32
Triglycerides 77 mg/dl (10-149) 05/06/25 05:32
LDL Cholesterol, Calc 58 mg/dl 05/06/25 05:32
VLDL Cholesterol, Calc 15 mg/dl (0-30) 05/06/25 05:32
HDL Cholesterol 71 mg/dl 05/06/25 05:32
Physical Exam
Constitutional: Comfortable
Cardiovascular: Rhythm & rate is regular
Respiratory: Respiratory effort normal
Neuro/Psych: AO x 3
Data Reviewed
-
Date of Service: May 09, 2025
Medical Decision Making: Reviewed Test Results
X-Ray/CT/US/MRI/NUC/PET: Image Personally Visualized and interpreted
Labs: Labs Reviewed by me
--- NOTE | 2025-05-09 19:13 | PTCARENOTE ---
Pt became asystolic after being tachycardic. RN immediately entered room and pt unresponsive in chair. Moved to bed, board put underneath, code 9 called and CPR started immediately. See code sheet.
--- NOTE | 2025-05-09 20:12 | W.PN.UPDATE ---
Update Note
Progress Note Update
-Pt with sudden onset of PEA arrest
-CPR initiated without achieving ROSC
-Code 9 x 38 minutes
-Please see code sheet for meds given during code
-Dr. Bolden aware of code, in-house and spoke to family
--- NOTE | 2025-05-09 20:13 | W.PN.DEATH ---
Pronouncement of
-
Called to see patient to pronounce.
No spontaneous heart tones or respirations noted.
Patient not responsive to verbal stimuli.
Patient is pronounced .
Time of : 20:07
Date of : 05/09/25
Family Notified: Yes (family at bedside )
--- NOTE | 2025-05-09 20:17 | W.PN.DEATH ---
Pronouncement of
-
Called to see patient to pronounce.
No spontaneous heart tones or respirations noted.
Patient not responsive to verbal stimuli.
Patient is pronounced .
Time of : 20:07
Date of : 05/09/25
Cause of : Myocardial Infarction, Ischemic Cardiomyopathy, LEROY
Family Notified: Yes (Family in-house at time of code)
[2025-05-09] MEDS: PULMICORT INH (20:49)
--- NOTE | 2025-05-09 23:38 | PTCARENOTE ---
Post mortem care completed. [facility] called. Pt placed in bag. Tag on toe, bag, and belonging bags. Belonging bag and chart sent to [facility] with pt.
== END 2025-05-09 20:07 | disposition expired ==
LOC: IVU 12:55
PROVIDERS: Hospitalist; Student in an Organized Health Care Education/Training Program; ADMITTING PHYSICIAN Student in an Organized Health Care Education/Training Program; ATTENDING PHYSICIAN Hospitalist; CONSULT PHYSICIAN Internal Medicine; EMERGENCY PHYSICIAN Student in an Organized Health Care Education/Training Program; OTHER PHYSICIAN Nurse Practitioner Adult Health
PROC: 5A09357 Assistance with Respiratory Ventilation, Less than 24 Consecutive Hours, Continuous Positive Airway Pressure (ICD-10-PCS; 2025-05-05)
PROC: B2121ZZ Fluoroscopy of Single Coronary Artery Bypass Graft using Low Osmolar Contrast (ICD-10-PCS; 2025-05-05)
PROC: 4A023N7 Measurement of Cardiac Sampling and Pressure, Left Heart, Percutaneous Approach (ICD-10-PCS; 2025-05-05)
PROC: B2111ZZ Fluoroscopy of Multiple Coronary Arteries using Low Osmolar Contrast (ICD-10-PCS; 2025-05-05)
DX: I11.0 Hypertensive heart disease with heart failure (principal); I50.33 Acute on chronic diastolic (congestive) heart failure; I21.3 ST elevation (STEMI) myocardial infarction of unspecified site; J96.01 Acute respiratory failure with hypoxia; N17.9 Acute kidney failure, unspecified; T82.857A Stenosis of other cardiac prosthetic devices, implants and grafts, initial encounter; I25.5 Ischemic cardiomyopathy; K21.9 Gastro-esophageal reflux disease without esophagitis; J44.9 Chronic obstructive pulmonary disease, unspecified; Z87.891 Personal history of nicotine dependence; I25.10 Atherosclerotic heart disease of native coronary artery without angina pectoris; Z95.1 Presence of aortocoronary bypass graft; E66.812 Obesity, class 2; Z96.651 Presence of right artificial knee joint; Z79.82 Long term (current) use of aspirin; Z68.32 Body mass index [BMI] 32.0-32.9, adult; N40.0 Benign prostatic hyperplasia without lower urinary tract symptoms; F41.9 Anxiety disorder, unspecified; E78.00 Pure hypercholesterolemia, unspecified; Z95.3 Presence of xenogenic heart valve; Y83.1 Surgical operation with implant of artificial internal device as the cause of abnormal reaction of the patient, or of later complication, without mention of misadventure at the time of the procedure; Z79.899 Other long term (current) drug therapy
CPT/HCPCS: 71045; 76705; 80053; 80061; 81099; 82248; 82570; 82962; 82977; 83036; 83735; 84100; 84300; 84484; 85025; 85027; 85347; 85610; 85730; 93005; 93306; 93308; 93321; 93325; 93459; 94640; 94660; 99152; 99153; 99285; C1760; C1769; C1894; Q9950; Q9967